=== PATIENT | male | born 1995 | race Caucasian/White ===

== ENCOUNTER 2023-04-06 21:47 | Emergency (ER) | payer SELFPAY ==
[~2023-04-06] VITALS: Ht 190.5 cm; Wt 114.0 kg
[2023-04-06 21:49] VITALS: O2SAT 98
[2023-04-06 22:24] VITALS: TEMP 98.2
[2023-04-06 23:15] LABS: BASOPHILS % 0.9 % (0.0-2.0); EOSINOPHILS % 1.3 % (0.0-5.0); HEMATOCRIT. 36.3 % (42.0-52.0); HEMOGLOBIN. 12.3 g/dL (14.0-18.0); LYMPHOCYTES % 13.9 % (20.0-50.0); MEAN CORPUSCULAR HEMOGLOBIN 30.1 pg (28.0-32.0); MEAN CORPUSCULAR HGB CONC 33.9 g/dL (31.0-37.0); MEAN CORPUSCULAR VOLUME 88.6 fL (80.0-94.0); MEAN PLATELET VOLUME 8.5 fl (7.4-10.4); MONOCYTES % 9.5 % (2.0-8.0); NEUTROPHILS % 74.4 % (40.0-76.0); PLATELET 185 x1000/uL (130-400); RED CELL DISTRIBUTION WIDTH 13.8 % (11.6-14.6); WHITE BLOOD COUNT 10.2 x1000/uL (4.5-11.0)
[2023-04-06 23:26] LABS: ACETAMINOPHEN < 2 ug/mL (10-30); CALCIUM 8.2 mg/dL (8.7-10.4); CARBON DIOXIDE 31 mEq/L (21-32); CHLORIDE 104 mEq/L (98-107); CREATININE 1.3 mg/dL (0.6-1.3); GLUCOSE 96 mg/dL (70-105); POTASSIUM 3.3 mEq/L (3.5-5.1); SODIUM 141 mEq/L (136-145); UREA NITROGEN BLOOD 25 mg/dL (9-23)
[2023-04-06 23:32] LABS: ETHANOL BLOOD < 10 mg/dL (<10)
[2023-04-07] MEDS ORDERED: POTASSIUM CHLORIDE 20MEQ/PACKET PO ONE
[2023-04-07 02:30] VITALS: BP 99/58; PULSE 81; RESP 11
== END 2023-04-07 03:07 | disposition left against medical advice (07) ==
LOC: ER 21:47 → EDBEDREQTM 04-07 02:08 → EDBEDREQ 04-07 02:08 → ER 04-07 03:07 → CANBEDREQ 04-08 15:56
DX: T42.4X1A Poisoning by benzodiazepines, accidental (unintentional), initial encounter (principal); X58.XXXA Exposure to other specified factors, initial encounter
CPT/HCPCS: 80048; 80307; 80329; 80320; 85025; 36415; 71045; 93005; 99284; Z7610 ×2; G0480

== ENCOUNTER 2023-04-07 05:32 | Emergency (ER) | payer SELFPAY ==
[~2023-04-07] VITALS: Ht 182.9 cm; Wt 114.0 kg
[2023-04-07 05:33] VITALS: O2SAT 96
[2023-04-07 08:40] VITALS: BP 119/62; PULSE 65; RESP 14; TEMP 98.1
== END 2023-04-07 09:06 | disposition home or self-care (01) ==
LOC: ER 05:32
DX: T65.91XA Toxic effect of unspecified substance, accidental (unintentional), initial encounter (principal); Y92.89 Other specified places as the place of occurrence of the external cause
CPT/HCPCS: 71045; 99284; Z7610 ×2